=== PATIENT | male | born 1965 | race American Indian/Alaskan Native ===

== ENCOUNTER 2016-04-06 16:14 | Outpatient (CLI) | payer OTHER ==
--- NOTE | 2016-04-06 16:55 | XRay Report ---
CHEST 2 VIEWS: INDICATION: Hemoptysis. COMPARISON: None similar. FINDINGS: PA and lateral chest radiographs demonstrate normal cardiomediastinal silhouette. Slight left basilar atelectasis may be present. No large pleural effusions or CHF, however. Slight aortic knob calcifications. Thoracic spondylosis. CONCLUSION: No significant acute chest process, as described. Please correlate. Thank you for the opportunity to participate in this patient's care.
== END 2016-04-06 16:15 | disposition home or self-care (01) ==
LOC: XRAY 16:14
PROVIDERS: ATTEND Internal Medicine
DX: R04.2 Hemoptysis (principal); J98.11 Atelectasis; I70.0 Atherosclerosis of aorta; M47.894 Other spondylosis, thoracic region
CPT/HCPCS: 71020

== ENCOUNTER 2016-08-26 12:08 | Outpatient (CLI) | payer OTHER ==
--- NOTE | 2016-08-29 07:54 | Vascular Lab Report ---
Right Lower Extremity Venous Duplex Study: Reason for Exam: Pain of the right lower extremity. Comments on the Right: Thrombus is noted in the calf veins and small saphenous vein.. The remaining veins visualized are freely compressible without evidence of internal echogenicity. Spontaneous and phasic flow is present proximally. Comments on the Left: A limited duplex study was done of the proximal veins of the left lower extremity. All veins visualized are freely compressible without evidence of internal echogenicity. Flow is spontaneous and phasic throughout. No evidence of acute or chronic thrombus is seen in any of the vessels visualized. Impression: Calf pain thrombosis of superficial phlebitis of the right lower extremity..
== END 2016-08-26 12:09 | disposition home or self-care (01) ==
LOC: VAS 12:08
PROVIDERS: ATTEND Internal Medicine
DX: I80.01 Phlebitis and thrombophlebitis of superficial vessels of right lower extremity (principal)

== ENCOUNTER 2018-08-23 09:33 | Outpatient (CLI) | payer MEDICARE, OTHER ==
[2018-08-23 11:10] LABS: Hematocrit 42.5 % (35.5-45.6); Hemoglobin 14.5 gm/dl (11.8-15.2); Mean Corpuscular HGB Conc 34 % (32-34); Mean Corpuscular Volume 95 fl (84-94); Platelet Count 233 K/mm3 (140-440); Red Blood Count 4.47 M/mm3 (3.65-5.03); Red Cell Distribution Width 12.5 % (13.2-15.2)
[2018-08-23 11:32] LABS: Alanine Aminotransferase 13 units/L (7-56); Albumin 4.5 g/dL (3.9-5); BUN/Creatinine Ratio 14; Blood Urea Nitrogen 10 mg/dL (9-20); Calcium 9.1 mg/dL (8.4-10.2); Chol/HDL Ratio 3.77 %; HDL Cholesterol 57 mg/dL (40-59); Hemolysis Index 3; LDL Cholesterol,Direct 147 mg/dL (50-130)
[2018-08-26 12:56] LABS: Vitamin D, 25-OH, D2 <4 ng/mL
== END 2018-08-23 09:34 | disposition home or self-care (01) ==
LOC: LAB 09:33
PROVIDERS: ATTEND Internal Medicine
DX: Z13.21 Encounter for screening for nutritional disorder (principal); E78.5 Hyperlipidemia, unspecified
CPT/HCPCS: 36415; 80053; 80061; 82306; 82607; 85027